=== PATIENT | female | born 2005 | race Caucasian/White ===

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

== ENCOUNTER 2024-01-21 06:13 | Emergency (ER) | payer MEDICAID, SELFPAY ==
[2024-01-21 06:16] VITALS: BP 116/68; PULSE 93; RESP 18; TEMP 36.5; O2SAT 98; BMI 29.8
--- NOTE | 2024-01-21 06:23 | W.ED.URI ---
HPI - URI/Sore Throat General: Chief Complaint: Upper Respiratory Infection Stated Complaint: soar, congestion Time Seen by Provider: 01/21/24 06:19 History of Present Illness: 18-year-old female presents emergency room with sore throat, congestion, subjective fevers and bodyaches. She had a negative strep screen yesterday but felt worse today so she came to the emergency room. Review of Systems Narrative: Constitutional symptoms: Negative except as documented in HPI. Skin symptoms: Negative except as documented in HPI. Eye symptoms: Negative except as documented in HPI. ENMT symptoms: Negative except as documented in HPI. Respiratory symptoms: Negative except as documented in HPI. Cardiovascular symptoms: Negative except as documented in HPI. Gastrointestinal symptoms: Negative except as documented in HPI. Genitourinary symptoms: Negative except as documented in HPI. Musculoskeletal symptoms: Negative except as documented in HPI. Neurologic symptoms: Negative except as documented in HPI. Psychiatric symptoms: Negative except as documented in HPI. Endocrine symptoms: Negative except as documented in HPI. [facility] ED PFSH: Medical History No significant past medical history Surgical History Hx laparoscopic cholecystectomy 07/11/23 Dr Carrasco History of removal of cyst Family History Other Cancer Diabetes Denies family history of Clotting disorder Bleeding disorder Stroke Social History Smoking and tobacco/nicotine status: current every day tobacco/nicotine user Alcohol intake: never Female Reproductive History: Date of last menstrual period: 01/21/24 Physical Exam Narrative: EXAM NARRATIVE: General: Alert, no acute distress. Skin: Warm, dry. Head: Normocephalic, atraumatic. Neck: Supple, trachea midline. Eye: Extraocular movements are intact. Ears, nose, mouth and throat: mucosa moist. Pharyngeal erythema with mild exudate Cardiovascular: Regular, Normal peripheral perfusion. Respiratory: Lungs are clear to auscultation, respirations are non-labored, breath sounds are equal, Symmetrical chest wall expansion. Gastrointestinal: Soft, Nontender, Non distended Musculoskeletal: Normal ROM, no deformity. Neurological: Alert and oriented, No focal neurological deficit observed. Psychiatric: Cooperative, appropriate mood & affect. Course Vital Signs: Vital signs: Vital Signs Temperature 97.7 F 01/21/24 06:16 Pulse Rate 93 01/21/24 06:16 Respiratory Rate 18 01/21/24 06:16 Blood Pressure 116/68 01/21/24 06:16 Pulse Oximetry 98 01/21/24 06:16 Oxygen Delivery Me thod Room Air 01/21/24 06:16 MDM - URI/Sore Throat Medical Decision Making Assessment and plan: Pharyngitis - Discharged home - Discussed plan with patient. Answered any questions. - Evaluation and treatment of this problem were appropriate in the emergency setting. No radiology studies performed this visit Discharge Plan Discharge Patient Disposition: Home Clinical Impression: Pharyngitis Condition: Stable Prescriptions: New Zithromax Z-Tyler 250 mg tablet See Rx Instructions .ROUTE .COMPLEX Qty: 6 0RF Rx Instructions: For 250 mg dose pack: take 500 mg today (day 1), then 250 mg for 4 days (days 2-5) dexamethasone 6 mg tablet 6 mg PO DAILY 5 Days Qty: 5 0RF No Action Kyleena 17.5 mcg/24 hrs (5 yrs) 19.5 mg intrauterine device 1 device intrauterine ONCE Qty: 1 0RF dicyclomine 20 mg tablet 20 mg PO Q6H 30 Days Qty: 120 1RF pantoprazole [Protonix] 40 mg tablet,delayed release (DR/EC) 40 mg PO BID 42 Days Qty: 84 1RF ondansetron HCl 4 mg Tablet 4 mg PO Q8H PRN (Reason: Nausea And Vomiting) dicyclomine 20 mg tablet 20 mg PO TID PRN (Reason: ABDOMINAL CRAMP) fluoxetine 20 mg tablet 20 mg PO DAILY lorazepam [Ativan] 2 mg tablet 2 mg buccal TID PRN (Reason: nausea nad vomitting) Qty: 14 0RF Discharge Orders: Discharge ED (Routine); Ordered 01/21/24 Ordered By: Meron Castle Referrals: Mady Novak FNP [Primary Care Provider] - Discharge Diet: Usual diet Discharge Activity: Resume usual activity Patient Instructions: Pharyngitis (ED) Activity Restrictions/Additional Instructions: Thank you for choosing [facility] for your healthcare needs today. Please realize this is an emergency room and that we are providing you with a medical screening exam and this may not be complete and all inclusive of all the testing and or work up that you may need to determine your ailment or severity of your illness. You have been screened and evaluated and felt safe for discharge. Health conditions do change or evolve sometimes and as such it is important that you follow up with your Primary Doctor to be re checked, 3-5 days is a general good time frame for follow up. You are always welcome to return to the ED for re assessment if your symptoms are worsening or you have new concerns Coding Level of Care Code ED Healthcare Market Consultant for Elma Bella
[2024-01-21 06:29] VITALS: BP 125/86
== END 2024-01-21 06:30 | disposition home or self-care (01) ==
PROVIDERS: Emergency Provider Emergency Medicine; PCP Nurse Practitioner Family
DX: J02.9 Acute pharyngitis, unspecified (principal); Z72.0 Tobacco use
CPT/HCPCS: 99283

== ENCOUNTER 2024-09-25 21:42 | Emergency (ER) | payer OTHER, SELFPAY ==
[2024-09-25 21:51] VITALS: BP 115/75; PULSE 98; RESP 18; TEMP 36.2; O2SAT 98; BMI 31.4
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
[2024-09-25] MEDS: oxyCODONE-APAP 10-325 mg Tablet 1 TAB PO (22:17)
[2024-09-25] MEDS: ondansetron hcl ODT 4 mg Tab PO (22:18)
[2024-09-25] MEDS: cefTRIAXone 2,000 MG in water for injection-sterile 2.1 ML 2.1 MG IM (22:25)
[2024-09-25 22:43] VITALS: BP 135/104; PULSE 87; RESP 16; O2SAT 96
== END 2024-09-25 22:42 | disposition home or self-care (01) ==
PROVIDERS: Emergency Provider Emergency Medicine; PCP Nurse Practitioner Family
DX: T25.221A Burn of second degree of right foot, initial encounter (principal); Z72.0 Tobacco use; X58.XXXA Exposure to other specified factors, initial encounter
CPT/HCPCS: 96372; 99284; J0696; J9999; Q0162